=== PATIENT | female | born 1965 | race Caucasian/White ===

== ENCOUNTER 2024-02-06 14:56 | Outpatient (REF) | payer OTHER, SELFPAY ==
--- NOTE | ~2024-02-06 | US_ITS ---
EXAMINATION: US VENOUS ULTRASOUND WITH DOPPLER LOWER EXTREMITY, LEFT CLINICAL INFORMATION: Pain and swelling COMPARISON: None available. TECHNIQUE: Ultrasound of the deep veins is performed from the hip to the calf with compression sonography and color and pulse Doppler assessment. Spectral analysis with color-flow imaging is performed. FINDINGS: There is normal venous compression and respiratory variation and augmented flow. The visualized common femoral vein, superficial femoral vein, profunda femoral vein, popliteal vein, and the trifurcation region shows no evidence of deep venous thrombosis. Peroneal veins not well visualized. There is no significant popliteal fossa cyst. If the patient's symptoms persist, followup ultrasound in 5 days 7 days might be of value to exclude proximal propagation from a non-visualized calf vein. US/US venous duplex LE IMPRESSION: No DVT demonstrated in the left lower extremity. Peroneal veins not well visualized.
== END 2024-02-06 14:57 | disposition home or self-care (01) ==
LOC: HO.US 14:56
PROVIDERS: PCP Internal Medicine; Visit Provider Physician Assistant
DX: M79.662 Pain in left lower leg (principal)
CPT/HCPCS: 93971

== ENCOUNTER 2024-10-03 09:45 | Outpatient (RCR) | payer MEDICAID, OTHER, SELFPAY | END 2024-11-21 15:27 | disposition home or self-care (01) | LOC: HO.WCC 09:45 | PROVIDERS: PCP Internal Medicine; Visit Provider Surgery | DX: I89.0 Lymphedema, not elsewhere classified (principal) | CPT/HCPCS: 11042; 11043; 11045; 87070; 87073; 87076; 87077; 87186; 87205; 97597; 97605; 99212; 99214; 99215 ==